=== PATIENT | female | born 1985 | race African-American/Black ===

== ENCOUNTER 2016-07-23 10:21 | Emergency (ER) | payer SELFPAY ==
[~2016-07-23 10:21] MED LIST: ADVIL200 M2 PO; CLARITIN-D 241 EAC2 PO; EXCEDRIN MIGRA1 EAC3 PO; GUAIFEN-CODEIN120 ML PO; IBUPROFEN400 MG PO; LEVAQUIN750 M1 PO; LEVOXYL100 MCG PO; ULTRAM50 MG PO; ZANTAC150 MG PO
[2016-07-23] MEDS ORDERED: NORCO 5-325 TA1 EACH PO (11:40)
== END 2016-07-23 12:21 ==
LOC: EDMED 10:21
PROC: 2W3RXYZ Immobilization of Left Lower Leg using Other Device (ICD-10-PCS; principal; 2016-07-23)
DX: S83.422A Sprain of lateral collateral ligament of left knee, initial encounter (principal); S83.522A Sprain of posterior cruciate ligament of left knee, initial encounter; Z88.1 Allergy status to other antibiotic agents; Z91.040 Latex allergy status; X50.1XXA Overexertion from prolonged static or awkward postures, initial encounter; Y92.009 Unspecified place in unspecified non-institutional (private) residence as the place of occurrence of the external cause